=== PATIENT | female | born 1965 | race Two or more races ===

== ENCOUNTER 2021-04-27 09:43 | Outpatient (CLI) | payer OTHER | END 2021-04-27 09:45 | disposition home or self-care (01) | LOC: LAB 09:43 | PROVIDERS: ATTEND Internal Medicine Hematology & Oncology | DX: D68.0 Von Willebrand disease (principal) ==

== ENCOUNTER 2023-01-02 11:02 | Outpatient (CLI) | payer OTHER | END 2023-01-02 11:18 | disposition home or self-care (01) | LOC: SONOGRAMA 11:02 | DX: E04.2 Nontoxic multinodular goiter (principal) ==